=== PATIENT | female | born 1990 | race Caucasian/White ===

== ENCOUNTER 2023-10-10 05:29 | Day surgery (SDC) | payer BC ==
[2023-10-10 05:45] VITALS: BMI 27.4
[2023-10-10] MEDS ORDERED: morphine SULFATE 4 MG/ML VIAL ONE (06:06)
[2023-10-10] MEDS ORDERED: ACETAMINOPHEN INJECTION 100 ML IVPB ONE ×2 (06:06→16:37)
[2023-10-10] MEDS: morphine CARPU-JECT 4 MG/1 ML DISP.SYRIN IVPUSH ONE (06:18)
[2023-10-10] MEDS: SODIUM CHLORIDE 0.9% 500 ML INFUS.BAG IV ONE (06:19)
[2023-10-10] MEDS: ACETAMINOPHEN 1000 MG/100 ML BAG IVPB ONE (06:19)
[2023-10-10 06:30] LABS: BASO % 0.3 % (0-2.0); EOS % 0.1 % (0-4.5); HEMATOCRIT 38.9 % (32.4-45.2); HEMOGLOBIN 13.6 GM/dL (10.7-15.3); MCH 31.7 pg (25.7-33.7); MCHC 35.1 g/dl (32.0-36.0); MEAN CELL VOLUME 90.2 fl (80-96); MONO % 6.4 % (3.8-10.2); NEUT % 87.2 % (42.8-82.8); PLATELET COUNT 279 10^3/uL (134-434); RBC 4.31 M/mm3 (3.60-5.2); RDW 12.6 % (11.6-15.6); WHITE BLOOD COUNT 18.9 K/mm3 (4.0-10.0)
[2023-10-10 06:52] LABS: POTASSIUM 3.8 mmol/L (3.5-5.1)
[2023-10-10 06:54] LABS: CALCIUM 9.2 mg/dL (8.5-10.1)
[2023-10-10 06:55] LABS: ALBUMIN 3.7 g/dl (3.4-5.0); BLOOD UREA NITROGEN 10.4 mg/dL (7-18)
[2023-10-10 06:58] LABS: CREATININE 0.8 mg/dL (0.55-1.3)
[2023-10-10 07:00] LABS: BILIRUBIN,TOTAL 0.9 mg/dL (0.2-1); TOT PROT 7.3 g/dl (6.4-8.2)
[2023-10-10 07:48] LABS: HIV INTERPRETATION NEGATIVE (NEGATIVE)
[2023-10-10 08:16] LABS: EPI CELLS 10 /uL (0-25.1); HYALINE CASTS 0 /uL (0-3.1); URINE APPEARANCE CLEAR; URINE BACTERIA 269 /uL (0-1359); URINE BILIRUBIN NEGATIVE (NEGATIVE); URINE COLOR YELLOW; URINE GLUCOSE (UA) NEGATIVE (NEGATIVE); URINE KETONE NEGATIVE (NEGATIVE); URINE LEUK ESTERASE TRACE (NEGATIVE); URINE NITRITE NEGATIVE (NEGATIVE); URINE PROTEIN NEGATIVE (NEGATIVE); URINE UROBILINOGEN 0.2 mg/dL (0.2-1.0); URINE WBC 19 /uL (0-25.8)
[2023-10-10 08:30] LABS: URINE RBC 56.9 /uL (0-23.9)
[2023-10-10] MEDS ORDERED: FENTANYL CITRATE/PF 50 MCG/ML VIAL ONE ×7 (09:03→18:11)
[2023-10-10] MEDS: morphine CARPU-JECT 2 MG/1 ML DISP.SYRIN IVPUSH ONE (09:24)
[2023-10-10] MEDS: LACTATED RINGERS SOLUTION 1000 ML INFUS.BAG IV ONE (11:01)
[2023-10-10] MEDS ORDERED: PIPERACILLIN/TAZOB 4.5 GM 4.5 GM/100 ML BAG IVPB ONE (11:26)
[2023-10-10] MEDS: PIPERACILLIN/TAZOB 4.5 GM 4.5 GM in DEXTROSE 5%-WATER 100 ML IVPB ONE (11:34)
[2023-10-10] MEDS ORDERED: morphine CARPU-JECT 2 MG/1 ML DISP.SYRIN IVPUSH PRN (13:39)
[2023-10-10] MEDS ORDERED: ACETAMINOPHEN 1000 MG/100 ML BAG IVPB PRN (13:40)
[2023-10-10] MEDS ORDERED: morphine SULFATE 4 MG/ML VIAL IVPUSH PRN (13:43)
[2023-10-10] MEDS ORDERED: ONDANSETRON 4 MG/2 ML VIAL IVPUSH PRN ×2 (13:55→16:53)
[2023-10-10] MEDS ORDERED: BUPIVACAINE HCL/PF 0.25% (2.5MG/ML) 10 ML VIAL ONE (13:55)
[2023-10-10] MEDS ORDERED: PROPOFOL 20 ML ONE (14:22)
[2023-10-10] MEDS ORDERED: ROCURONIUM BROMIDE 50 MG/5 ML SYRINGE ONE (14:23)
[2023-10-10] MEDS ORDERED: MIDAZOLAM HCL 2 MG/2 ML SINGLE DOSE VIAL ONE (14:23)
[2023-10-10] MEDS: BUPIVACAINE HCL/PF 0.25% (2.5MG/ML) 10 ML VIAL IJ ONE (15:59)
[2023-10-10] MEDS ORDERED: ONDANSETRON 4 MG/2 ML VIAL ONE (16:03)
[2023-10-10] MEDS ORDERED: DEXAMETHASONE SOD PHOSPHATE 4 MG/1 ML VIAL ONE (16:03)
[2023-10-10] MEDS ORDERED: SUGAMMADEX SODIUM 200 MG/2 ML VIAL ONE (16:04)
[2023-10-10] MEDS ORDERED: KETOROLAC TROMETHAMINE 30 MG/1 ML VIAL ONE (16:38)
[2023-10-10] MEDS: KETOROLAC TROMETHAMINE 30 MG/1 ML VIAL IVPUSH ONE (16:43)
[2023-10-10] MEDS: ACETAMINOPHEN 1000 MG/100 ML BAG IVPB PRN (16:46)
[2023-10-10] MEDS ORDERED: PIPERACILLIN/TAZOB 4.5 GM 4.5 GM in DEXTROSE 5%-WATER 100 ML IVPB SCH (17:00)
[2023-10-10] MEDS ORDERED: PIPERACILLIN/TAZOB 3.375 GM 3.375 GM in DEXTROSE 5%-WATER - 50 ML IVPB SCH (18:00)
[2023-10-10] MEDS: PIPERACILLIN/TAZOB 4.5 GM 4.5 GM in DEXTROSE 5%-WATER 100 ML IVPB SCH (18:00)
[2023-10-10] MEDS: LACTATED RINGERS SOLUTION 1,000 ML IV SCH (18:30)
[2023-10-10 19:12] VITALS: RESP 18
[2023-10-10] MEDS: morphine SULFATE 4 MG/ML VIAL IVPUSH PRN (20:17)
[2023-10-11] MEDS ORDERED: PIPERACILLIN/TAZOB 3.375 GM 3.375 GM in DEXTROSE 5%-WATER - 50 ML IVPB SCH (02:00)
[2023-10-11] MEDS: LACTATED RINGERS SOLUTION 1,000 ML IV SCH (07:54)
[2023-10-11] MEDS: ACETAMINOPHEN 1000 MG/100 ML BAG IVPB ONE (07:54)
[2023-10-11 09:03] LABS: HEMATOCRIT 36.2 % (32.4-45.2); HEMOGLOBIN 12.2 GM/dL (10.7-15.3); MCHC 33.7 g/dl (32.0-36.0); MEAN CELL VOLUME 91.8 fl (80-96); MEAN PLT VOLUME 9.4 fl (7.5-11.1); PLATELET COUNT 158 10^3/uL (134-434); RBC 3.95 M/mm3 (3.60-5.2); RDW 12.3 % (11.6-15.6); WHITE BLOOD COUNT 13.5 K/mm3 (4.0-10.0)
[2023-10-11] MEDS: ONDANSETRON 4 MG/2 ML VIAL IVPUSH PRN (10:22)
[2023-10-11] MEDS: LACTATED RINGERS IV SCH (10:23)
[2023-10-11] MEDS ORDERED: KETOROLAC TROMETHAMINE 30 MG/1 ML VIAL IVPUSH SCH ×2 (11:23→18:00)
[2023-10-11] MEDS: IBUPROFEN 600 MG TABLET (FP) PO SCH (11:33)
[2023-10-11] MEDS: oxyCODONE HCL 5 MG TABLET PO PRN (15:08)
[2023-10-11] MEDS: ACETAMINOPHEN 1000 MG/100 ML BAG IVPB SCH (15:09)
[2023-10-11] MEDS ORDERED: ACETAMINOPHEN 325 MG TABLET (FP) PO PRN (17:00)
[2023-10-11] MEDS ORDERED: oxyCODONE HCL 5 MG TABLET PO PRN (17:00)
[2023-10-12] MEDS: ACETAMINOPHEN 500 MG TABLET (FP) PO SCH (06:21)
[2023-10-12 08:58] LABS: HEMATOCRIT 34.9 % (32.4-45.2); HEMOGLOBIN 12.2 GM/dL (10.7-15.3); MCH 31.9 pg (25.7-33.7); MEAN CELL VOLUME 91.2 fl (80-96); MEAN PLT VOLUME 9.6 fl (7.5-11.1); PLATELET COUNT 167 10^3/uL (134-434); RBC 3.83 M/mm3 (3.60-5.2); RDW 12.5 % (11.6-15.6); WHITE BLOOD COUNT 7.6 K/mm3 (4.0-10.0)
[2023-10-12 09:18] LABS: CALCIUM 8.8 mg/dL (8.5-10.1)
[2023-10-12 09:19] LABS: BLOOD UREA NITROGEN 9.5 mg/dL (7-18)
[2023-10-12 09:22] LABS: CREATININE 0.9 mg/dL (0.55-1.3)
[2023-10-12 09:23] LABS: BILIRUBIN,TOTAL 0.3 mg/dL (0.2-1)
[2023-10-12 09:31] LABS: ALBUMIN 2.8 g/dl (3.4-5.0)
[2023-10-12 13:10] VITALS: BP 124/73; PULSE 41; TEMP 98.5
== END 2023-10-12 15:34 | disposition home or self-care (01) ==
LOC: JER 05:29 → UNDOADMIN 11:49 → JERBED 11:49 → JASUSAT 18:10 → SUATTDRO 18:10 → J6S 18:47 → JASUSAT 10-12 15:34
PROVIDERS: ATTEND Internal Medicine
PROC: 0DTJ4ZZ Resection of Appendix, Percutaneous Endoscopic Approach (ICD-10-PCS; principal; 2023-10-10 14:00)
DX: K35.80 Unspecified acute appendicitis (principal)
CPT/HCPCS: 36415; 74177-TC; 76830-TC; 80053; 81003; 84703; 85025; 85027; 86140; 87086; 87389; 88304-TC; 93005; 93010; 94760; 99285-25; J0131; Q9967